=== PATIENT | male | born 1945 | race Caucasian/White ===

== ENCOUNTER 2017-06-02 14:54 | Emergency (ER) | payer OTHER ==
--- NOTE | 2017-06-02 15:45 | EDM.PDOC ---
ED HPI GENERAL MEDICAL PROBLEM - General Chief Complaint: General Stated Complaint: MULTIPLE INJURIES Time Seen by Provider: 06/02/17 15:30 Source of Information: Reports: Patient, RN Notes Reviewed History Limitations: Reports: No Limitations - History of Present Illness INITIAL COMMENTS - FREE TEXT/NARRATIVE: The patient states that he was felling a 40 foot tree yesterday around 10:00, when it fell in a direction that he did not expect. He tried to run away from it , but it struck him on the back, pinning him to the ground with his chainsaw pressed against his chest. The patient was able to extricate himself over time, but now presents with pain to his anterior chest, posterior neck, and left scapula. His chest pain is absent if he remains perfectly still, but is made significantly worse with coughing, certain movements, and deep breaths. He has a few assorted scratches that do not bother him. The patient's PCP is Dr. Calvo in [place], [place], but was seen by Dr. Villatoro at the [facility] earlier today. Treatments LASER ENGRAVER: Reports: Other (see below) Other Treatments LASER ENGRAVER: motrin Chest Pain Score (Numeric/FACES): 9 - Related Data Allergies Allergy/AdvReac Type Severity Reaction Status Date / Time No Known Allergies Allergy Verified 06/02/17 15:30 Home Meds: Home Meds Citalopram Hydrobromide [Celexa] 40 mg PO DAILY 06/02/17 [History] Past Medical History Cardiovascular History: Reports: High Cholesterol Psychiatric History: Reports: Anxiety, Depression, PTSD Endocrine/Metabolic History: Reports: Obesity/BMI 30+ - Past Surgical History HEENT Surgical History: Reports: Oral Surgery ([place] teeth extraction) Neurological Surgical History: Reports: Lumbar Spine (L5 laminectomy) Social & Family History - Tobacco Use Years of Tobacco use: 10 Packs/Tins Daily: 1 Month Tobacco Last Used: Quit 1976 - Alcohol Use Alcohol Use History: Yes Alcohol Use Frequency: Socially - Recreational Drug Use Recreational Drug Use: No - Living Situation & Occupation Living situation: Reports: , with Spouse Occupation: Retired ED ROS GENERAL - Review of Systems Review Of Systems: See Below Constitutional: Reports: No Symptoms HEENT: Reports: No Symptoms Respiratory: Reports: No Symptoms Cardiovascular: Reports: No Symptoms Endocrine: Reports: No Symptoms GI/Abdominal: Reports: No Symptoms : Reports: No Symptoms Musculoskeletal: Reports: No Symptoms Skin: Reports: No Symptoms Neurological: Reports: No Symptoms Psychiatric: Reports: No Symptoms Hematologic/Lymphatic: Reports: No Symptoms Immunologic: Reports: No Symptoms ED EXAM, GENERAL - Physical Exam Exam: See Below Exam Limited By: No Limitations General Appearance: Alert, WD/WN, No Apparent Distress Eye Exam: Bilateral Eye: Normal Inspection Ears: Normal External Exam, Hearing Grossly Normal Nose: Normal Inspection, No Blood Throat/Mouth: Normal Inspection, Normal Lips, Normal Voice, No Airway Compromise Head: Normocephalic, Other (Abrasion to the top of the scalp, otherwise atraumatic) Neck: Normal Inspection, Tender Lateral (bilateral paraspinous muscles). No: Tender Midline Respiratory/Chest: No Respiratory Distress, Lungs Clear, Normal Breath Sounds, No Accessory Muscle Use, Other (Tender primarily of the sternum and immediately surrounding the sternum. No significant tenderness elsewhere.). No: Crackles, Rhonchi, Wheezing Cardiovascular: Normal Peripheral Pulses, Regular Rate, Rhythm, No Gallop, No JVD, No Murmur, No Rub Peripheral Pulses: 4+: Radial (L), Radial (R) GI/Abdominal: Normal Bowel Sounds, Soft, Non-Tender, No Organomegaly, No Distention, No Abnormal Bruit, No Mass (Male) Exam: Deferred Rectal (Males) Exam: Deferred Back Exam: Normal Inspection, Full Range of Motion, NT Extremities: Normal Inspection, Normal Range of Motion, No Pedal Edema, Normal Capillary Refill Neurological: Alert, Oriented, Normal Cognition, No Motor/Sensory Deficits Psychiatric: Normal Affect Skin Exam: Warm, Dry, Intact, Normal Color, No Rash, Other (Assorted scratches and abrasions) EKG INTERPRETATION EKG Date: 06/02/17 Time: 18:38 Rhythm: NSR Rate (Beats/Min): 64 [place]: Normal P-Wave: Present QRS: Normal ST-T: Normal QT: Normal Comparison: NA - No Prior EKG Course - Vital Signs Last Recorded V/S: Last Vital Signs Temp 36.8 C 06/02/17 15:24 Pulse 64 06/02/17 15:24 Resp 20 06/02/17 15:24 BP 148/68 H 06/02/17 15:24 Pulse Ox 98 06/02/17 15:24 - Orders/Labs/Meds Orders: Active Orders 24 hr Category Date Time Status EKG 12 Lead [EKG Documentation Completion] [RC] STAT Care 06/02/17 18:20 Active EKG 12 Lead [EK] Stat Ther 06/02/17 18:20 Ordered Labs: Laboratory Tests 06/02/17 Range/Units 16:00 Sodium 138 (136-145) mEq/L Potassium 4.2 (3.5-5.1) mEq/L Chloride 105 (98-107) mEq/L Carbon Dioxide 23 (21-32) mEq/L Anion Gap 14.2 (5-15) BUN 24 H (7-18) mg/dL Creatinine 1.1 (0.7-1.3) mg/dL Est Cr Clr Drug Dosing 69.57 mL/min Estimated GFR (MDRD) > 60 (>60) mL/min BUN/Creatinine Ratio 21.8 H (14-18) Glucose 90 (80-115) mg/dL Calcium 8.7 (8.5-10.1) mg/dL Meds: Medications Discontinued Medications Generic Name Dose Route Start Last Admin Trade Name Freq PRN Reason Stop Dose Admin Iopamidol 80 ml 06/02/17 16:52 06/02/17 17:05 Isovue-300 (61%) IVPUSH 06/02/17 16:53 80 ml ONETIME ONE Administration Sodium Chloride 10 ml 06/02/17 16:52 06/02/17 17:05 Saline Flush FLUSH 06/02/17 16:53 10 ml ONETIME ONE Administration - Re-Assessments/Exams Free Text/Narrative Re-Assessment/Exam: 06/02/17 18:12 CT of the cervical spine without contrast is read by Dr. Arauz as: 1. Degenerative change within the cervical spine as described above as well as degenerative change within the right temporomandibular joint 2. Nothing acute is seen on CT study of the cervical spine. CT of the chest with IV contrast is read by Dr. Arauz as: 1. Mildly displaced sternal fracture with very slight retrosternal soft tissue swelling. 2. Other incidental findings. No additional acute finding is seen. 06/02/17 18:[address] Sky at 18:15. Unfortunately, he states that he is not a trauma surgeon, and recommended that I discussed the case with the trauma surgeon in [place]. The CT images were forwarded to [facility], and the case was discussed with Dr. Edmondson at 18:32. As there are no rib fractures, pneumothorax, or dysrhythmias, and the injury is over 24 hours, the only recommended treatment is pain control. He is recommending that the patient follow-up with his PCP in about a week for a chest x-ray, unless new symptoms develop. 06/02/17 18:54 The above was discussed with the patient. A narcotic was offered for pain control, however, the patient will prefer to stick with ibuprofen. Departure - Departure Time of Disposition: 18:56 Disposition: Home, Self-Care 01 Condition: Good Clinical Impression: Sternal fracture - Discharge Information Referrals: Hue Villatoro DO [Primary Care Provider] - Forms: ED Department Discharge Additional Instructions: You were seen in the emergency room for chest, posterior neck, and left scapular pain after being struck by a falling tree yesterday. Workup in the ER included blood work, an ECG, a CT scan of your cervical spine, and a CT scan of your chest. Your workup revealed that you have a minimally displaced sternal fracture ( broken breastbone). As you do not have a popped lung, broken rib, or abnormal heart rhythm, the only treatment is pain management and time. You were offered a narcotic pain reliever, but declined. We recommend you take [id number] ibuprofen, 2-3 tablets (400-600 mg) up to every 8 hours, with food, as needed for pain. We recommend that you get a chest x-ray in follow-up with your PCP in about one week. If any other problems, please do not hesitate to return to the ER. - My Orders Last 24 Hours: My Active Orders 06/02/17 18:20 EKG 12 Lead [EKG Documentation Completion] [RC] STAT EKG 12 Lead [EK] Stat - Assessment/Plan Last 24 Hours: My Active Orders 06/02/17 18:20 EKG 12 Lead [EKG Documentation Completion] [RC] STAT EKG 12 Lead [EK] Stat
[2017-06-02] MEDS ORDERED: Iopamidol 612 MG/ML 100 ML Bottle IVPUSH ONE (16:52)
[2017-06-02] MEDS ORDERED: Sodium Chloride 0.9% 10 ML Syringe FLUSH ONE (16:52)
--- NOTE | 2017-06-02 17:30 | CT ---
CT cervical spine Technique: Multiple axial sections were obtained from above C1 inferiorly to the mid T1 level. Reconstructed sagittal and coronal images were reviewed. Findings: Moderate disc space narrowing is noted at C5-C6 and C6-C7. Anterior osteophytes are seen at both these levels as well as at C7-T1. Slight posterior osteophytes are also seen at C5-C6 and slightly more prominent at C6-C7. Mild degenerative change is noted within the dens and anterior arch of C1. Visualized mastoid sinuses and middle ear cavities are clear. Posterior skull base is intact. Vertebral bodies and posterior arches are intact with no fracture being seen. Mild right-sided neural foraminal stenosis is noted at C4-C5. Mild left-sided stenosis is noted at C6-C7. No central canal stenosis is seen. No abnormal subluxation is seen. Slight scoliosis is noted. Degenerative change is seen within the right temporomandibular joint with joint space narrowing, articular irregularity and degenerative cysts. Impression: 1. Degenerative change within the cervical spine as described above as well as degenerative change within the right temporomandibular joint 2. Nothing acute is seen on CT study of the cervical spine. Diagnostic code #2
--- NOTE | 2017-06-02 17:36 | CT ---
CT chest Technique: Multiple axial sections were obtained from above the lung apices inferiorly through the lung bases. Intravenous contrast was utilized. Comparison: No prior chest imaging. Findings: Atherosclerotic calcification is seen within the branch vessels of the aorta as well as within the thoracic aorta. No mediastinal or hilar adenopathy is seen. No pericardial thickening is seen. Small portion of the visualized upper abdominal structures are within normal limits. Small nodule is noted within the left upper lung compatible with calcified granuloma measuring less than 1 cm. Mild dependent atelectasis is incidentally noted within both posterior lungs. Lungs otherwise are clear. No pulmonary contusion is seen. No pleural effusions or pneumothorax is seen. Bone window settings were reviewed which shows no rib fracture. Mild degenerative change is seen within the spine. No acute compression deformities are seen within the spine. Slightly displaced sternal fracture is seen on the reconstructed sagittal views. Minimal retrosternal soft tissue swelling is seen. Shoulder girdles show no discrete fracture. Impression: 1. Mildly displaced sternal fracture with very slight retrosternal soft tissue swelling. 2. Other incidental findings. No additional acute finding is seen. Diagnostic code #3
[2017-06-02] MEDS ORDERED: Ibuprofen 600 MG Tab PO ONE (19:10)
== END 2017-06-02 19:08 | disposition home or self-care (01) ==
LOC: JD.ED 14:54
DX: S22.20XA Unspecified fracture of sternum, initial encounter for closed fracture (principal); W14.XXXA Fall from tree, initial encounter; Z79.899 Other long term (current) drug therapy
CPT/HCPCS: 36415; 71260; 72125; 80048; 93005; 99285; A9270; J7050; Q9967; 93010; 99284